=== PATIENT | female | born 1985 | race Caucasian/White ===

== ENCOUNTER 2025-08-25 13:52 | Emergency (ER) | payer OTHER, SELFPAY ==
[2025-08-25 13:52] VITALS: BP 104/71
[2025-08-25 13:53] VITALS: BP 100/70
[2025-08-25 13:55] VITALS: BP 100/70
[2025-08-25 14:01] VITALS: BP 116/77
--- NOTE | 2025-08-25 14:06 | ED.GENMED ---
History of Present Illness
General
Chief Complaint: Fainting Sensation
Source: patient
Exam Limitations: none
Time Seen by Provider: 08/25/25 13:58
History of Present Illness
History of Present Illness:
See MDM
Past History
Past History
ED Past Medical History: None
ED Past Surgical History: Orthopedic
Social History
Tobacco: Non-smoker
Alcohol: None
Phy Exam
Physical Exam
Physical Exam:
See MDM
Course
Orders/Labs/Results
Orders:
Orders
08/25/25 13:54
Electrocardiogram (*1) Urgent
Reason for Study: Syncope
EKG- Treatment ONCE
Test Result ONCE
08/25/25 14:05
0.9% Sodium Chloride 1000 ml [Nss] 1,000 ml IV BOLUS
08/25/25 14:11
Complete Blood Count/With Diff Urgent
Comprehensive Metabolic Panel Urgent
HCG, Serum Qualitative Screen Urgent
Abnormal Lab Results
08/25/25
14:11
WBC 18.0 H 10^3/uL
(4.8-10.8)
MPV 11.7 H fL
(7.4-10.4)
Abs Immat Gran (auto) 0.1 H 10^3/uL
(0-0.05)
Absolute Neuts (auto) 15.0 H 10^3/uL
(1.4-6.5)
Absolute Monos (auto) 1.0 H 10^3/uL
(0.1-0.6)
Neutrophils % 83.8 H %
(42.2-75.2)
Lymphocytes % 10.0 L %
(20.5-51.1)
Sodium 132 L mmol/L
(135-145)
08/25/25 14:11
08/25/25 14:11
Vital Signs
Initial and Last Documented VS:
Initial Vital Signs
BP
104/71
08/25/25 13:52
Last Documented Vital Signs
Temp Pulse Resp BP Pulse Ox
97.4 F 66 19 116/77 99
08/25/25 13:55 08/25/25 14:45 08/25/25 14:45 08/25/25 14:01 08/25/25 14:45
MDM/Problems Addressed
Differential Diagnosis Includes:
Note:
CHIEF COMPLAINT(S)
Dizziness after physical therapy session.
HISTORY OF PRESENT ILLNESS
The patient is a 40-year-old female with a recent history of shoulder surgery due to a frozen shoulder. While attending a physical therapy session today, she began experiencing dizziness at the end of the session. She reported feeling as though she
might faint, though she did not lose consciousness. This sensation improved after she began hydrating with water. Additionally, the patient mentioned experiencing mild chest discomfort overnight, which has since resolved. There is no shortness of
breath reported. She described being in the parking lot contemplating whether to come inside for evaluation or not.
PHYSICAL EXAM
General: Alert, no acute distress.
Skin: Warm, dry.
Head: Normocephalic, atraumatic
Neck: Appears supple, trachea midline.
Eyes, Ears, Nose, Mouth, and Throat: Mildly dry mucous membranes
Cardiovascular: No signs of cyanosis. Regular rate and rhythm. No murmur
Respiratory: Respirations are non-labored.
Abdomen: Non-distended
Musculoskeletal: Right shoulder in a splint
Neurological: No focal neurological deficit observed.
Psychiatric: Cooperative, appropriate mood and affect.
ELECTROCARDIOGRAM (EKG)
My independent EKG interpretation is: The EKG appears normal without any abnormalities in heart rhythm.
PLAN
- Administer intravenous fluids.
- Conduct basic blood work.
DIFFERENTIAL DIAGNOSIS
The Differential Diagnosis includes, in no particular order and is not limited to:
- Orthostatic hypotension
- Dehydration
- Vasovagal syncope
- Cardiac arrhythmia
- Anemia
- Electrolyte imbalance
- Anxiety or panic episode
- Acute coronary syndrome
- Reaction to recent surgery or medications
- Postural orthostatic tachycardia syndrome (POTS)
SUMMARY OF ENCOUNTER
The patient was seen in the emergency department for dizziness experienced after a physical therapy session following recent shoulder surgery. The management included administration of intravenous fluids to address possible dehydration and basic
blood work to rule out conditions such as anemia or electrolyte imbalance secondary to recent surgery and its stress on the body.
ASSESSMENT
The patient likely experienced dizziness and near-syncope due to orthostatic hypotension or dehydration potentially related to recent surgery and physical activity during physical therapy.
MEDICAL DECISION MAKING
Number and Complexity of Problems Addressed:
Chronic conditions affecting care include potential dehydration and status post shoulder surgery. Differential diagnosis as listed above.
Data:
Category 1:
Non-emergency department records reviewed as applicable or available.
Category 2:
My independent interpretation of EKG indicates normal findings without abnormalities.
Category 3:
Management discussed with attending emergency physician regarding fluids and laboratory testing to rule out acute issues related to recent surgery and dehydration.
Risk:
Prescription medication was considered, but ultimately not given after discussion with patient/family, since no acute life-threatening conditions were identified.
The patients symptoms were well controlled upon reevaluation, reexamination was reassuring, vitals were stable, and the patient was agreeable to our management plan.
EKG
My independent EKG interpretation is:
- Time of EKG: Not specified
- Rhythm: Sinus rhythm
- Heart Rate: 62 beats per minute
- [place]: Normal
- TX Interval: Within normal limits
- QRS Duration: Within normal limits
- QT Interval: Within normal limits
- ST Segment Changes: No ST elevation
- Abnormalities: None noted
SUMMARY OF ENCOUNTER
The patient, a 40-year-old female with a recent shoulder surgery, presented to the emergency department after experiencing dizziness following a physical therapy session. She reported sensations of near syncope which resolved with hydration. Despite
having mild chest discomfort overnight, it resolved without any escalation of symptoms like shortness of breath. Upon arrival, she received intravenous fluids to address potential dehydration. Blood work revealed mild leukocytosis, likely a stress
response to recent surgery. The patient showed significant improvement following fluid administration and was agreeable to outpatient management.
DISPOSITION
Discharge.
ASSESSMENT
The patient likely experienced dizziness due to orthostatic hypotension or dehydration, possibly related to recent surgery and physical exertion during physical therapy.
PLAN
Discharge the patient with instructions to continue hydration, monitor for any return of symptoms, and seek medical attention if symptoms such as dizziness, chest discomfort, or syncope recur.
INDEPENDENT REVIEW OF LABS AND INTERPRETATION OF TESTS
My independent review of CBC indicates mild leukocytosis, likely a stress response from recent surgery. Remaining blood work showed no clinically significant abnormalities.
PATIENT EDUCATION AND COUNSELING
The patient was advised on the importance of staying hydrated, especially after physical activity, and was educated on recognizing symptoms that should prompt a return to the emergency department, such as persistent dizziness or new chest pain.
MEDICATION RECONCILIATION
No new medications prescribed during this visit.
MEDICAL DECISION MAKING
Chronic conditions affecting care include potential dehydration and postoperative status following shoulder surgery. Differential diagnosis included orthostatic hypotension, dehydration, vasovagal syncope, cardiac arrhythmia, anemia, electrolyte
imbalance, anxiety or panic episode, acute coronary syndrome, reaction to recent surgery or medications, and postural orthostatic tachycardia syndrome (POTS).
- Data:
Category 1
- CBC was reviewed showing mild leukocytosis.
- My independent interpretation of EKG indicated normal findings with no abnormalities.
Category 3
- Discussion of management with attending emergency physician regarding fluid administration and determination for discharge based on resolved symptoms and stable vitals.
Risk:
Prescription medication was considered, but ultimately not given after discussion with patient/family, since no acute life-threatening conditions were identified.
DIAGNOSIS
Dizziness due to dehydration and/or orthostatic hypotension, Z86.69 (Personal history of other conditions).
*Pulse Oximetry
SaO2: 99
Oxygen Mode of Delivery: Room air
Patient hypoxic: no
*Critical Care Note
Total Time (30-74mins, 75-104mins- exclusive of procedures): Not Applicable
ED Attending Note
-
Portions of this chart may have been created with voice recognition software.� Occasional wrong word or��sound alike� substitutions may have occurred due to the inherent limitations of voice recognition software.
Discharge Plan
Departure
Patient Disposition: Home (Routine Discharge)
Date of Disposition: 08/25/25
Time of Disposition: 15:20
Patient with high blood pressure during this ER visit?: No
Discharge Problem:
Near syncope
Instructions: Near Fainting (DC)
Activity Restrictions/Additional Instructions:
Please return for any worsening symptoms.
You may return at any time if you have further concerns.
Please follow up with your doctor at the first available appointment, preferably this week.
Thank you for choosing [facility].
Interventions
Interventions:
*Risk Screen - Suicide Last Done: 08/25/25 13:55
*General Assessment Last Done: 08/25/25 13:55
*Neglect/Abuse Screening Last Done: 08/25/25 13:55
ED- Cardiac Assessment Last Done: 08/25/25 14:25
ED- Neurological Assessment Last Done: 08/25/25 14:25
Discharge Date and Time
Print Language: MONGOLIAN
[2025-08-25] MEDS: NSS 1000 IV (14:10)
[2025-08-25 14:18] LABS: Hematocrit 37.2 % (37.0-47.0); Hemoglobin 12.8 g/dL (12.0-16.0); Mean Corp Hgb Conc. 34.4 g/dL (33.0-37.0); Mean Corpuscular Volume 84.5 fL (81.0-99.0); Nucleated Red Blood Cells % 0 %; Platelet Count 168 10^3/uL (130-400); Red Cell Dist. Width 13.5 % (11.5-14.5)
[2025-08-25 14:25] VITALS: BMI 26.6
[2025-08-25 14:33] LABS: HCG, Serum Qualitative Screen Negative
[2025-08-25 14:54] LABS: ALT (SGPT) 16 U/L (0-35); AST (SGOT) 23 U/L (14-36); Albumin 4.1 g/dl (3.5-5.0); Alkaline Phosphatase 40 U/L (38-126); Blood Urea Nitrogen 10 mg/dl (7-17); Calcium 9.1 mg/dl (8.4-10.2); Carbon Dioxide 28 mmol/L (22-30); Chloride 102 mmol/L (98-107); Estimated Creatinine Clearance 103 ml/min; Glucose 97 mg/dl (70-99); Potassium 3.6 mmol/L (3.5-5.1); Sodium 132 mmol/L (135-145); Total Protein 6.8 g/dl (6.3-8.2); eGFR > 60.00
[2025-08-25 15:00] VITALS: BP 104/72
== END 2025-08-25 16:12 | disposition home or self-care (01) ==
LOC: EMR 13:52
PROVIDERS: EMERGENCY PHYSICIAN Student in an Organized Health Care Education/Training Program
DX: R55 Syncope and collapse (principal); D72.829 Elevated white blood cell count, unspecified; Z71.82 Exercise counseling
CPT/HCPCS: 99283; 96360; 80053; 84703; 85025; 93005